=== PATIENT | female | born 1980 | race Asian ===

== ENCOUNTER → 2021-01-05 | Outpatient (CLI) | payer OTHER ==
--- NOTE | 2021-01-05 09:42 | RAD ---
EXAM: Pelvic sonogram. HISTORY: Dysmenorrhea. TECHNIQUE: Transabdominal sonographic imaging of the pelvis was performed. COMPARISON: None. FINDINGS: The uterus measures 10.0 x 7.1 x 3.9 cm. The endometrial stripe measures 3 mm in thickness. The right ovary is surgically absent. The left ovary is obscured due to bowel gas. No left adnexal m ass or cyst is seen. There is a small amount of pelvic free fluid. IMPRESSION: 1. Unremarkable uterus. 2. Obscured left ovary and surgically absent right ovary. 3. Small amount of pelvic free fluid. Electronically signed by: Corrina Rodarte MD (01/05/2021 9:39 AM) [id number]
== END ==
LOC: US 07:50
PROVIDERS: ATTEND Family Medicine Sports Medicine
DX: N94.6 Dysmenorrhea, unspecified (principal); Z90.721 Acquired absence of ovaries, unilateral
CPT/HCPCS: 76856